=== PATIENT | female | born 1950 | race Caucasian/White ===

== ENCOUNTER 2024-02-08 13:23 | Emergency (ER) | payer MEDICARE, OTHER, SELFPAY ==
[2024-02-08 13:34] VITALS: BP 171/91
--- NOTE | 2024-02-08 14:16 | ED.GENMED ---
History of Present Illness
<Pretty Jenkins PA-C - Last Filed: 02/10/24 18:40>
General
Chief Complaint: Fall
Source: patient
Exam Limitations: none
Time Seen by Provider: 02/08/24 13:54
Nursing documentation reviewed up to this point in time: agreed with
Travel History
Have you had any contact with someone who has COVID-19?: No
Do you have any symptoms of coronavirus? Fever > 100 degrees, chills, cough, shortness of breath, sore throat, loss of taste or smell, muscle aches, or headache?: No
History of Present Illness
History of Present Illness:
Patient is a 73-year-old female presenting to the emergency department for evaluation of left knee pain. Patient states that she was dismounting from her horse when she fell landing with her left knee bent backwards. Patient was able to get up by
herself but has been able to bear weight on left lower extremity since. Patient reports significant pain in left knee both at rest and with movement. Patient denies any numbness/tingling in left lower extremity. Patient denies hitting her head or
sustaining other injuries during fall.
Of note�patient does report an ACL tear in her left knee many years ago which resolved with nonoperative management.
Past History
<Pretty Jenkins PA-C - Last Filed: 02/10/24 18:40>
Past History
ED Past Medical History: Other (Renal calculus)
ED Past Surgical History: Appendectomy, (X 2) and Urological (Renal stent)
Social History
Tobacco: Non-smoker
Alcohol: Daily (Wine 1 glass small)
Personal:
Living: with family
Review of Systems
<Pretty Jenkins PA-C - Last Filed: 02/10/24 18:40>
Review of Systems
Allergies reviewed?: Yes
All Other Systems: ROS reviewed and negative except as documented in HPI and ROS
Phy Exam
<Pretty Jenkins PA-C - Last Filed: 02/10/24 18:40>
Physical Exam
Physical Exam:
Vitals: Patient's vital signs are stable. Afebrile
General: Patient is well appearing, no acute distress
Skin: Warm and dry, no rashes or lesions
Head: Normocephalic, atraumatic
Eyes: Sclera nonicteric. EOMs intact. No nystagmus.
Throat: Protecting airway
Neck: Normal ROM, no cervical spine tenderness, no meningismus
Cardiac: Regular rate and rhythm, no murmurs.
Pulm: Normal respiratory effort, no wheezes, rales, rhonchi heard on exam.
Abdomen: No abdominal tenderness.
Extremities: Left knee joint effusion without any obvious deformity, tender to palpation along medial joint > lateral joint line, some pain with valgus stress, negative anterior drawer test, no bony tenderness of LLE; DP, PT, popliteal pulses
palpable in left lower extremity, sensation fully intact
Neuro: AAOx3. CN II-XII intact. No focal neurologic deficits.
Psychiatric: Normal affect.
Course
<Pretty Jenkins PA-C - Last Filed: 02/10/24 18:40>
Orders/Labs/Results
Orders:
Orders
02/08/24 13:38
CR Knee - Left 4 Or More View* Urgent
Comment:
Reason For Exam: fall
02/08/24 14:46
Acetaminophen [Tylenol] 650 mg PO NOW STA
02/08/24 15:00
Knee Immobilizer Left-Treatmen ONCE
Vital Signs
Initial and Last Documented VS:
Initial Vital Signs
Temp Pulse Resp BP Pulse Ox
97.8 F 86 20 171/91 98
02/08/24 13:34 02/08/24 13:34 02/08/24 13:34 02/08/24 13:34 02/08/24 13:34
Last Documented Vital Signs
Temp Pulse Resp BP Pulse Ox
97.8 F 83 20 137/86 98
02/08/24 13:34 02/08/24 15:58 02/08/24 13:34 02/08/24 15:58 02/08/24 13:34
<Hugo Conroy DO - Last Filed: 02/08/24 15:00>
Orders/Labs/Results
Orders:
Orders
02/08/24 13:38
CR Knee - Left 4 Or More View* Urgent
Comment:
Reason For Exam: fall
02/08/24 14:46
Acetaminophen [Tylenol] 650 mg PO NOW STA
02/08/24 15:00
Knee Immobilizer Left-Treatmen ONCE
Vital Signs
Initial and Last Documented VS:
Initial Vital Signs
Temp Pulse Resp BP Pulse Ox
97.8 F 86 20 171/91 98
02/08/24 13:34 02/08/24 13:34 02/08/24 13:34 02/08/24 13:34 02/08/24 13:34
Last Documented Vital Signs
Temp Pulse Resp BP Pulse Ox
97.8 F 83 20 137/86 98
02/08/24 13:34 02/08/24 15:58 02/08/24 13:34 02/08/24 15:58 02/08/24 13:34
<Pretty Jenkins PA-C - Last Filed: 02/10/24 18:40>
MDM/Problems Addressed
Differential Diagnosis Includes:
Not limited to: Patellar subluxation, meniscal injury, ACL/MCL injury, doubt fracture
MDM/Problems Addressed:
73 year old female presents following patellar dislocation when getting off horse. Patient relocated herself prior to presentation in emergency department. Vitals are stable. Exam as above. Patient well appearing. She does have swelling and
tenderness along the medial joint line. There are no obvious bony deformities or bony tenderness of left knee or left lower leg. Leg extension intact. Good distal pulses of LLE. Xray reviewed by myself and attending physician which show no obvious
acute changes. Suspect likely patellar dislocation associated with ligamentous/meniscal injury. Will place in knee immobilizer and have patient follow-up with orthopedics. Patient has crutches. Ice, elevation, tylenol/motrin for pain. Patient
comfortable with plan.
Chronic conditions affecting care:
N/A
Acute Exacerbation and/or Progression of Chronic Illness:
N/A
<Pretty Jenkins PA-C - Last Filed: 02/10/24 18:40>
*Radiology
Radiology exam reviewed: preliminary read by ED provider (no acute changes)
*Pulse Oximetry
Patient hypoxic: no
*EKG
Interpreted by ED Provider?: NA
*Gift Shop Clerk Interpretation
Rate: Gift Shop Clerk- N/A
*Critical Care Note
Total Time (30-74mins, 75-104mins- exclusive of procedures): Not Applicable
<Pretty Jenkins PA-C - Last Filed: 02/10/24 18:40>
Update Note
Update Note:
02/10/24 @ 315PM: Reviewed official xray report which showed a subtle vertical lucency at lateral tibial plateau indicating possible nondisplaced tibial plateau fracture. Called and spoke to patient on phone regarding official xray report and
discrepancy. Advised patient to keep left leg in knee immobilizer and to remain non weight bearing until she speaks with orthopedics. Recommended CT for further evaluation. Patient was seen by orthopedics yesterday and has an MRI scheduled for this
Wednesday. She is improving and will f/u with orthopedics. All questions answered.
ED Attending Note
<Pretty Jenkins PA-C - Last Filed: 02/10/24 18:40>
-
Portions of this chart may have been created with voice recognition software.� Occasional wrong word or��sound alike� substitutions may have occurred due to the inherent limitations of voice recognition software.
<Hugo Conroy, DO - Last Filed: 02/08/24 15:00>
ED Attending Note
Patient seen and examined by attending physician: Yes
I performed the substantive portion of visit, reviewed & personally made and approve the management plan that is documented in note by myself or [place].: Yes
ED Attending Note:
I have seen and evaluated the patient with a [id number] encounter. I have spoken to the advance practicer provider and involved in the medical history, the physical exam, medical decision making.
Evaluation and management service: agree unless noted differently below.
Results interpretation: agree unless noted differently below.
Focused HPI: 73-year-old female presenting with left knee pain and injury while she was dismounting from horse. Patient states she felt like her kneecap was moved laterally. When she extended her leg, she felt it pop. Patient is concerned because
there is mild swelling to her knee.
Physical exam: Sitting in the chair comfortably. Mild tenderness and swelling to distal aspect of left medial meniscus. Leg extension intact. Distal extremity otherwise neurovascularly intact
Medical Decision Making: Discussed likely patellar dislocation. She reduced it on her own. Given the swelling and pain, we discussed the possibility of meniscal or ligamentous injury. Will place a knee immobilizer and discussed follow-up with
orthopedics for possible MRI
Discharge Plan
Departure
Patient Disposition: Home (Routine Discharge)
Date of Disposition: 02/08/24
Time of Disposition: 15:00
Patient with high blood pressure during this ER visit?: Yes
Covid-19: Not Applicable
Discharge Problem:
Lateral subluxation of left patella
Instructions: Dislocated Kneecap (DC), Knee Sprain ED, BLOOD PRESSURE
Prescriptions:
No Action
tamsulosin [Flomax] 0.4 mg capsule
0.4 mg PO HS Qty: 7 0RF
ondansetron 4 mg tablet,disintegrating
4 mg PO Q8H PRN (Reason: nausea and vomiting) Qty: 7 0RF
oxycodone 5 mg tablet
5 mg PO Q6HPRN PRN (Reason: pain) Qty: 10 0RF
Referrals:
Jj Rubin MD [Active] - Next open appointment
UNKNOWN - PT DOES,NOT KNOW [Family Provider] -
Activity Restrictions/Additional Instructions:
RETURN TO THE EMERGENCY DEPARTMENT WITH ANY SEVER PAIN, SIGNIFICANT WORSENING IN REDNESS, SWELLING, OR BRUISING OF LEFT KNEE, NUMBNESS/TINGLING IN LEFT LOWER EXTREMITY, OR ANY OTHER CONCERNS
-You should keep knee in the knee immobilizer until you are seen by orthopedics. You can use crutches as needed for assistance with ambulation until cleared by orthopedic. You should ice and elevate your left knee as often as possible. You can
take Tylenol and/or Motrin as needed for discomfort.
-As discussed�you should follow-up with orthopedics for further evaluation/management. You may require further imaging.
Interventions
Interventions:
*Risk Screen - Suicide Last Done: 02/08/24 13:34
*General Assessment Last Done: 02/08/24 13:34
*Neglect/Abuse Screening Last Done: 02/08/24 13:34
*Nursing Disposition Last Done: 02/08/24 15:58
ED-Musculoskeletal Assessment Last Done: 02/08/24 15:38
ED- Neurological Assessment Last Done: 02/08/24 15:38
ED-Skin Assessment Last Done: 02/08/24 15:38
Discharge Date and Time
Discharge Date/Time: 02/08/24 15:58
Print Language: CZECH
[2024-02-08] MEDS: TYLENOL 650 MG PO (15:25)
[2024-02-08 15:58] VITALS: BP 137/86
== END 2024-02-08 15:58 | disposition home or self-care (01) ==
LOC: EMR 13:23
PROVIDERS: EMERGENCY PHYSICIAN Student in an Organized Health Care Education/Training Program
DX: S83.012A Lateral subluxation of left patella, initial encounter (principal); X50.1XXA Overexertion from prolonged static or awkward postures, initial encounter; R03.0 Elevated blood-pressure reading, without diagnosis of hypertension
CPT/HCPCS: 99283; 29505; 73564

== ENCOUNTER → 2024-02-13 07:44 | Outpatient (REF) | payer MEDICARE, OTHER, SELFPAY | LOC: MRI 3T 07:44 | PROVIDERS: ATTENDING PHYSICIAN Orthopaedic Surgery | DX: M23.92 Unspecified internal derangement of left knee (principal) | CPT/HCPCS: 73721 ==

== ENCOUNTER → 2024-08-22 07:36 | Outpatient (REF) | payer MEDICARE, OTHER, SELFPAY | LOC: RAD 07:36 | PROVIDERS: ATTENDING PHYSICIAN Surgery | DX: N20.0 Calculus of kidney (principal) | CPT/HCPCS: 74018 ==

== ENCOUNTER → 2024-09-21 11:33 | Outpatient (REF) | payer MEDICARE, OTHER, SELFPAY ==
[2024-09-26 12:26] LABS: Stone Analysis Mass 6 mg
== END ==
LOC: CPAP 11:33
PROVIDERS: ATTENDING PHYSICIAN Surgery
DX: N20.1 Calculus of ureter (principal)
CPT/HCPCS: 82365